=== PATIENT | female | born 1960 | race Caucasian/White ===

== ENCOUNTER 2023-06-29 06:52 | Inpatient (IN) | payer MEDICARE, SELFPAY ==
[2023-06-17 10:00] LABS: Hematocrit 36.7 % (37.0-47.0); Hemoglobin 12.6 g/dL (12.0-16.0); Mean Corp Hgb Conc. 34.3 g/dL (33.0-37.0); Mean Corpuscular Hgb 34.1 pg (27.0-31.0); Mean Corpuscular Volume 99.2 fL (81.0-99.0); Mean Platelet Volume 9.8 fL (7.4-10.4); Platelet Count 180 10^3/uL (130-400); Red Cell Dist. Width 12.6 % (11.5-14.5); White Blood Cell Count 3.4 10^3/uL (4.8-10.8)
[2023-06-17 10:43] LABS: Blood Urea Nitrogen 15 mg/dl (7-17); Calcium 9.2 mg/dl (8.4-10.2); Carbon Dioxide 25 mmol/L (22-30); Chloride 102 mmol/L (98-107); Glucose 84 mg/dl (70-99); Potassium 4.2 mmol/L (3.5-5.1); Sodium 136 mmol/L (135-145); eGFR > 60.00
[2023-06-17 12:08] VITALS: BMI 29.4
[2023-06-29] VITALS (13 sets, daily range): BP systolic 93–160; BP diastolic 48–82; BMI 29.4
--- NOTE | 2023-06-29 09:19 | HP.FOC2 ---
Focused History & Physical
Chief Complaint
HPI:
Chief Complaint: Incisional hernia
HPI / Indication for Planned Procedure: Patient is a 63-year-old female with history of T3 N0 colon cancer having undergone laparoscopic extended right colectomy with anastomosis, subsequent robotic ileal colonic resection with simultaneous onlay
incisional hernia repair 01/06/2020. She has developed a recurrent swelling along her central abdominal wall for which she presents for scheduled operative correction.
Relevant Past Medical History: Other (History of colon cancer, left shoulder bursitis, RSD, history of left arm blood clot)
Relevant Social History: Negative
Relevant Family History: Negative
Relevant Past Surgical History: Positive for (L4 S1 fusion, stimulator, sympathectomy, lap extended right hemicolectomy, robotic ileocolonic resection, open incisional hernia repair)
Review of Systems
Review of Pertinent Systems: All Systems Negative
Medication
See Medication form for detailed medications: Yes
Medication List (including Herbals & OTC):
amitriptyline 75 mg tablet 75 mg PO HS Mental Health/Anxiety 10/14/18
tizanidine 4 mg tablet 4 mg PO HS Muscle spasms 10/14/18
aspirin 81 mg tablet,delayed release 81 mg PO DAILY 06/24/23
lenalidomide 5 mg capsule (Revlimid) 5 mg PO HS 06/24/23
lisinopril 10 mg tablet 10 mg PO DAILY 06/24/23
meloxicam 15 mg tablet 15 mg PO DAILY 06/24/23
potassium chloride 10 mEq capsule,extended release 20 meq PO DAILY 06/24/23
tramadol 50 mg tablet 100 mg PO HS 06/24/23
Medications Reviewed: Yes
Allergies and Reactions
Patient has Allergies: Yes
Noted Allergies and Reactions:
Allergy/AdvReac Type Severity Reaction Status Date / Time
adhesive Allergy RASH,BLISTE Verified 06/24/23 10:55
RS
Penicillins Allergy Hives Verified 06/24/23 10:55
prochlorperazine Allergy 'neurologic Verified 06/24/23 10:55
[From Compazine] reaction'
Pertinent Physical Exam
All Other Systems: Negative
Head/Neck: Normal
Lungs: Normal
Heart: Normal
Abdomen: Other (Multiple soft, nontender recurrent incisional hernias along upper central abdominal wall with superimposed diastasis)
Extremities: Normal
Neurological: Normal
Diagnosis / Assessment
63-year-old female presenting for scheduled operative correction recurrent incisional hernias.
Plan / Procedure
Robotic assisted laparoscopic repair recurrent incisional hernia with mesh
Anesthesia/Sedation to be done by Anesthesia Provider: Yes
[2023-06-29] MEDS: TYLENOL 1000 MG PO (11:13)
[2023-06-29] MEDS: NORMOSOL-R 1000 IV (11:29)
[2023-06-29] MEDS: VANCOCIN 200 IV (11:30)
--- NOTE | 2023-06-29 11:43 | W.SUR.PREOP ---
Pre-Operative Surgical Note
-
I have examined this patient prior to the performance of the scheduled procedure.
The patient's condition is unchanged from the time of the current History and
Physical and the patient is able to undergo the scheduled procedure.
--- NOTE | 2023-06-29 15:25 | W.IMMPOSTOP ---
Addendum entered and electronically signed by Preston Slaughter MD 06/29/23 16:05:
#[id number]
Original Note:
Surgical Immed Post Op Note
-
Primary Surgeon: Sukhjinder
Assisting Surgeon: Johanne
Pre-op Diagnosis: Recurrent Incisional Hernias
Post-op Diagnosis: Recurrent Incisional Hernias; 12cm
Procedure Performed: RAL repair recurrent incisional hernias with mesh (IPOM+; ventralight ST [id number])
Anesthesia Type: GETA + 0.25% Marcaine
Specimen / Cultures: None
Estimated Blood Loss: 12mL
Complications: none immediate
Operative Findings: Multiple midline recurrent incisional hernias spanning vertical length of 12 cm at maximal width of 5 cm superimposed within 5 to 6 cm diastases recti of the abdominal wall. Large fascial defects closed with #1 PDS; smaller
fascial defects with 0 PDS. IPOM +; Ventralight ST 20 cm x 15 cm secured with 2-0 PDS strata fix double crown technique.
There were no intra-abdominal adhesions to abdominal wall nor hernia defects.
[2023-06-29] MEDS: DILAUDID 0.5 MG IV (16:05)
[2023-06-29] MEDS: NSS 1000 IV (16:22)
--- NOTE | 2023-06-29 17:12 | PTCARENOTE ---
pt presents from PACU. s/p repair recurrent incisional hernias with mesh. pt is AAO*3, Vss, room air 95%. pt c/o pain in the surgery site. 12/04. pt has Inocente garcia, elizabeth. pt's family at the bedside updated. pt is oriented to the room. call marcelo
within the reach. will continue plan of care.
[2023-06-29] MEDS: LOVENOX 40 MG SC (17:16)
[2023-06-29] MEDS: DILAUDID 1 MG IV ×2 (17:17→20:48)
[2023-06-29] MEDS: NSS (PRESERVATIVE FREE) 0.25 ML IV (18:09)
[2023-06-29] MEDS: ATIVAN 0.5 MG IV (18:10)
[2023-06-29] MEDS: REGLAN 10 MG IV (20:46)
[2023-06-29] MEDS: NON-FORMULARY ITEM 5 MG PO (21:24)
[2023-06-29] MEDS: ELAVIL 75 MG PO (21:25)
[2023-06-29] MEDS: ZANAFLEX 4 MG PO (21:25)
[2023-06-30] MEDS: NSS 1000 IV (03:18)
[2023-06-30] MEDS: DILAUDID 1 MG IV ×3 (03:22→14:22)
[2023-06-30 03:39] VITALS: BP 111/54
[2023-06-30 06:54] LABS: Hematocrit 31.3 % (37.0-47.0); Hemoglobin 10.6 g/dL (12.0-16.0); Mean Corp Hgb Conc. 33.9 g/dL (33.0-37.0); Mean Corpuscular Hgb 34.3 pg (27.0-31.0); Mean Corpuscular Volume 101.3 fL (81.0-99.0); Mean Platelet Volume 10.2 fL (7.4-10.4); Platelet Count 178 10^3/uL (130-400); Red Blood Cell Count 3.09 10^6/uL (4.20-5.40)
[2023-06-30 07:00] VITALS: BP 128/68
[2023-06-30 07:21] LABS: Blood Urea Nitrogen 14 mg/dl (7-17); Calcium 8.4 mg/dl (8.4-10.2); Carbon Dioxide 25 mmol/L (22-30); Chloride 102 mmol/L (98-107); Estimated Creatinine Clearance 79 ml/min; Glucose 111 mg/dl (70-99); Sodium 134 mmol/L (135-145); eGFR > 60.00
--- NOTE | 2023-06-30 07:24 | W.PN.GS2 ---
Today's Communication / Plan
-
`
Assessment / Plan
-
Assessment: 63 y/o female POD#1 s/p RAL IPOM repair recurrent incisional hernias
AFVSS
expected post op pain
hgb 10.6 - h/o chronic anemia; very minimal operative blood loss, do not suspect acute blood loss anemia
Plan: multimodal pain control options - recommended starting with toradol this AM
continue IVF until eric PO
full liquid diet for now until signs of post op GI recovery
home meds
OOBTC/ambulate
garcia out
dispo: possible d/c in PM vs tomorrow depending on mobility and pain control
Subjective Data
-
Date of Service: June 30, 2023
pt see and examined
nausea overnight earlier, improving
feels hungry now
reports post op pain, controlled with Dilaudid overnight
Objective Data
-
Intake and Output
06/29/23 06/30/23 07/01/23
06:59 06:59 06:59
Intake Total 630 / 630
Output Total 750 / 750
Balance -120 / -120
Intake:
Oral fluids 480 / 480
IV fluids (Total) 150 / 150
Normosol 150 / 150
Output:
Urine, Garcia 750 / 750
Vital Signs
Temp Pulse Resp BP Pulse Ox
97.6 F 63 18 111/54 99
06/30/23 03:39 06/30/23 03:39 06/30/23 03:39 06/30/23 03:39 06/30/23 03:39
Lab Results
06/30/23 06:22
06/30/23 06:22
Calcium 8.4 mg/dl (8.4-10.2) 06/30/23 06:22
Physical Exam
-
NAD AAOx3
ABD: soft, ND, generalized tenderness
incisions with glue dressings, minimal ecchymosis, no hematomas, no drainage
[2023-06-30] MEDS: TORADOL 10 MG IV (07:30)
[2023-06-30] MEDS: ZESTRIL 10 MG PO (08:33)
[2023-06-30] MEDS: ASPIR LOW (ENTERIC COATED) 81 MG PO (08:33)
[2023-06-30 11:00] VITALS: BP 140/68
[2023-06-30 15:00] VITALS: BP 146/72
--- NOTE | 2023-06-30 15:29 | CM ---
CM following re: d/c planning
Chart reviewed
CM met with the patient at bedside; IA completed
Pt states she resides alone in a 1SH with 4STE
[employer]ACH[employer] ATTEND[employer] patient reports independence at baseline
Pt has no past hx of DME/SNF and has had [facility] in the past
Pt does have prescription coverage and rx's are filled at [facility] on [address]
Pt PCP-Dr. Yeni Donaldson
No needs are anticipated once stable for d/c
Cm will continue to monitor patient progress and assist with any needs at d/c as applicable
PLAN; d/c home no needs anticipated
[2023-06-30] MEDS: NSS IV (16:45)
--- NOTE | 2023-06-30 17:37 | W.DS.TRANS ---
Addendum entered and electronically signed by JOAN Alcaraz 07/03/23 10:17:
#[id number]
Original Note:
DC Summary - Rn Home Health
-
Discharge Instructions:
Sleep Apnea Risk Low
Discharge Diagnosis/Procedures Recurrent incisional hernia. Robotic assisted
laparoscopic repair recurrent incisional hernia
with mesh.
Diet As tolerated,Regular
Additional Diets Smaller meals initially after surgery as
abdominal bloating and distention are common for
the first few days
Activity No strenuous activity
Driving Restrictions No driving 2 to 3 days or if using narcotics
Bathing Restrictions OK to Shower
Wound Care Glue at surgical sites typically peels off in 2
to 3 weeks
Instructions:
Stand-Alone Forms:
Changes to Home Medications: No
Discharge Medications:
DC Medications w/original date entered in [employer]
amitriptyline 75 mg tablet 75 mg PO HS Mental Health/Anxiety 10/14/18
tizanidine 4 mg tablet 4 mg PO HS Muscle spasms 10/14/18
aspirin 81 mg tablet,delayed release 81 mg PO DAILY Blood Clot Prevention/Tx 06/24/23
lenalidomide 5 mg capsule (Revlimid) 5 mg PO HS Cancer 06/24/23
lisinopril 10 mg tablet 10 mg PO DAILY Blood Pressure 06/24/23
meloxicam 15 mg tablet 15 mg PO DAILY Pain 06/24/23
potassium chloride 10 mEq capsule,extended release 20 meq PO DAILY Electrolyte Repletion 06/24/23
acetaminophen 500 mg tablet (Tylenol Extra Strength) 1,000 mg PO Q6HPRN PRN mild pain #1 tab 06/30/23
oxycodone 5 mg tablet 5 mg PO Q4HPRN PRN breakthrough/severe pain #20 tabs 06/30/23
polyethylene glycol 3350 17 gram/dose oral powder (Miralax) 4 g PO DAILY PRN Constipation #119 grams 06/30/23
tramadol 100 mg tablet,extended release 24 hr 100 mg PO HS pain 06/30/23
Home Medication Changes
Pending Results: No
== END 2023-06-30 18:05 | disposition home or self-care (01) | DRG 355 ==
LOC: 4 EAST ACU 06:52
PROVIDERS: ADMITTING PHYSICIAN Surgery; FAMILY PHYSICIAN Family Medicine
PROC: 0WUF4JZ Supplement Abdominal Wall with Synthetic Substitute, Percutaneous Endoscopic Approach (ICD-10-PCS; 2023-06-29)
PROC: 8E0W4CZ Robotic Assisted Procedure of Trunk Region, Percutaneous Endoscopic Approach (ICD-10-PCS; 2023-06-29)
DX: K43.2 Incisional hernia without obstruction or gangrene (principal); Z85.038 Personal history of other malignant neoplasm of large intestine; Z88.0 Allergy status to penicillin
CPT/HCPCS: 36415; 80048; 85027; 93005; C1781

== ENCOUNTER → 2025-02-21 12:54 | Outpatient (REF) | payer MEDICARE, SELFPAY | LOC: RAD 12:54 | PROVIDERS: ATTENDING PHYSICIAN Physician Assistant Surgical; FAMILY PHYSICIAN Family Medicine | DX: M79.662 Pain in left lower leg (principal); I82.409 Acute embolism and thrombosis of unspecified deep veins of unspecified lower extremity | CPT/HCPCS: 93971 ==